=== PATIENT | male | born 1985 | race Two or more races ===

== ENCOUNTER 2017-08-11 08:36 | Emergency (ER) | payer OTHER ==
[2017-08-11] MEDS ORDERED: DEXTROSE 50% 1 VIAL SOL IV ONE ×3 (08:40→09:51)
[2017-08-11] MEDS ORDERED: SODIUM CHLORIDE 0.9% 1000ML 1,000 ML IV SCH (09:00)
[2017-08-11 09:04] LABS: CALCIUM 8.2 mg/dl (8.5-10.1); POTASSIUM 3.9 mMol/L (3.5-5.1)
[2017-08-11] MEDS ORDERED: SODIUM CHLORIDE 0.9% FLUSH 10 ML SOL IV PRN (09:10)
[2017-08-11 09:29] VITALS: O2SAT 100
[2017-08-11 09:43] LABS: HEMATOCRIT 44 % (39-53)
[2017-08-11 09:58] VITALS: TEMP 97.9
[2017-08-11 10:39] VITALS: PULSE 89; RESP 16
[2017-08-11 11:13] VITALS: BP 134/78
[2017-08-14 07:58] LABS: MEAN CORPUSCULAR HGB CONC 35.1 gm/dl (32.0-36.0); MEAN CORPUSCULAR VOLUME 86 fL (80-100)
[2017-08-14 07:59] LABS: BASOPHILS % (AUTO) 3 % (0-3); EOSINOPHILS % (AUTO) 8 % (0-9); MONOCYTES % (AUTO) 7.5 % (0-12); NEUTROPHILS % (AUTO) 56.5 % (37-80)
== END 2017-08-11 10:58 | disposition left against medical advice (07) | DRG 639 ==
LOC: ED 08:36
DX: E11.649 Type 2 diabetes mellitus with hypoglycemia without coma (principal); Z79.4 Long term (current) use of insulin
CPT/HCPCS: 80048; 82962; 85025; 99285